=== PATIENT | female | born 1960 | race Caucasian/White ===

== ENCOUNTER → 2018-09-12 | Outpatient (CLI) | payer MEDICARE, OTHER ==
[~2018-09-12] MED LIST: AMLODIPINE BESY10 MG PO; ATROVENT15 ML NS; BYSTOLIC2.5 MG PO; CALCIUM +D & M1 EACH PO; DEXTROAMPHETAMIN5 M2 PO; EFFEXOR XR75 MG; EFFEXOR75 MG PO; GLUCOSAMINE HC500 MG PO; KEFLEX500 MG PO; NAMENDA 10 MG T10 MG PO; OSTEO BI-FLEX1 EAC1; SUPER B COMPLE1 EAC1 PO; ZANAFLEX6 MG
== END ==
LOC: M.RAD 13:00
DX: Z12.31 Encounter for screening mammogram for malignant neoplasm of breast (principal)